=== PATIENT | female | born 1945 | race Caucasian/White ===

== ENCOUNTER 2017-06-06 13:04 | Emergency (ER) | payer MEDICARE, OTHER ==
[2017-06-06 13:29] VITALS: BP 134/56
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
[2017-06-06] MEDS ORDERED: HYDROmorphone 1 MG/ML Syringe IM ONE (14:29)
== END 2017-06-06 15:45 | disposition home or self-care (01) ==
LOC: JP.ED 13:04
DX: S36.92XA Contusion of unspecified intra-abdominal organ, initial encounter (principal); Z79.82 Long term (current) use of aspirin; Z88.0 Allergy status to penicillin; Z88.8 Allergy status to other drugs, medicaments and biological substances; Z98.890 Other specified postprocedural states; V19.9XXA Pedal cyclist (driver) (passenger) injured in unspecified traffic accident, initial encounter
CPT/HCPCS: 96372; 99284; J1170